=== PATIENT | female | born 1985 | race Caucasian/White ===

== ENCOUNTER 2019-02-04 23:07 | Emergency (ER) | payer OTHER ==
[~2019-02-04] VITALS: Ht 162.6 cm; Wt 102.1 kg
[2019-02-04] MEDS ORDERED: DOXY100 (23:31)
[2019-02-04] MEDS ORDERED: OLAN10 PO (23:31)
[2019-02-04] MEDS ORDERED: MOME220I INH (23:32)
[2019-02-04] MEDS ORDERED: LEVSOD25 PO (23:32)
[2019-02-04] MEDS ORDERED: Atarax10 MG PO (23:32)
[2019-02-04] MEDS ORDERED: Ventolin5 MG/1 ML INH (23:32)
== END 2019-02-05 01:08 | disposition home or self-care (01) ==
LOC: ER 23:07
DX: J45.901 Unspecified asthma with (acute) exacerbation (principal); M43.6 Torticollis; F32.9 Major depressive disorder, single episode, unspecified; E03.9 Hypothyroidism, unspecified; Z79.899 Other long term (current) drug therapy
CPT/HCPCS: 71046; 99283-25; J7512